=== PATIENT | female | born 1955 | race Caucasian/White ===

== ENCOUNTER → 2018-12-03 | Outpatient (CLI) | payer SELFPAY ==
--- NOTE | 2018-12-03 11:15 | US ---
EXAMINATION TYPE: US venous doppler duplex LE LT DATE OF EXAM: 12/03/2018 11:07 AM COMPARISON: NONE CLINICAL HISTORY: R22.42 swelling in L leg. Swelling and pain x 1 week. Started aspirin x 1 week ago . SIDE PERFORMED: Left TECHNIQUE: The lower extremity deep venous system is examined utilizing real time linear array sonog sheila with graded compression, doppler sonography and color-flow sonography. VESSELS IMAGED: External Iliac Vein (EIV) Common Femoral Vein Deep Femoral Vein Greater Saphenous Vein * Femoral Vein Popliteal Vein Small Saphenous Vein * Proximal Calf Veins (* superficial vessels) Left Leg: Negative for DVT IMPRESSION: No evidence for DVT at this time.
== END | disposition home or self-care (01) ==
LOC: RADUSWWP 10:48
PROVIDERS: ATTEND Family Medicine
DX: R22.42 Localized swelling, mass and lump, left lower limb (principal)

== ENCOUNTER → 2019-11-25 | Outpatient (CLI) | payer MEDICARE ==
--- NOTE | 2019-11-25 15:33 | BD ---
EXAMINATION TYPE: Axial Bone Density DATE OF EXAM: 11/25/2019 COMPARISON: NONE CLINICAL HISTORY: Height: 66 Weight: 191.2 FRAX RISK QUESTIONS: Alcohol (3 or more units per day): no Family History (Parent hip fracture): no Glucocorticoids (More than 3mos): no (Ex: prednisone, prednisolone, methylprednisolone, dexamethasone, and hydrocortisone). History of Fracture in Adulthood: yes Secondary Osteoporosis: 1. Type 1 Diabetes: no 2. Hyperthyroidism: no 3. Menopause before 45: yes 4. Malnutrition: no 5. Chronic liver disease: no Rheumatoid Arthritis: no Current Tobacco Use: no RISK FACTORS HISTORY OF: History of Wrist Fracture: right When: 9 years ago Family History of Osteoporosis: no Active: sometimes Diet low in dairy products/other sources of calcium: yes Postmenopausal woman: age 36 complete hysterectomy Lost more than 2 inches in height since high school: yes MEDICATIONS: vitamins, zoloft, Osteoporosis Medications: fosamax How Lon years Additional Medications: Additional History: EXAM MEASUREMENTS: Bone mineral densitometry was performed using the [employer] System. Bone mineral density as measured about the Lumbar spine is: ----- L1-L4(G/cm2): 1.042-1.3 T Score Values are as follows: ----- L2: -1.3 ----- L3: -0.1 ----- L4: -1.5 ----- L1-L4: -1.2 Bone mineral density : baseline Bone mineral density about the R hip (g/cm2): 0.684 Bone mineral density about the L hip (g/cm2): 0.742 T Score values are as follows: -----R Neck: -2.5 -----L Neck: -2.1 -----R Total: -2.1 -----L Total: -2.3 Bone mineral density : baseline IMPRESSION: Osteopenia NOTE: T-SCORE=SD OF THE YOUNG ADULT MEAN.
--- NOTE | 2019-12-03 14:21 | MM ---
Reason for exam: additional evaluation requested from prior study. Last mammogram was performed 2 years ago. History: Patient is postmenopausal, has history of breast cancer at age 49, history of other cancer, and is nulliparous. Implant in the left breast, 2004. Breast lift of the right breast, 2004. Reduction of the right breast, 2004. Mastectomy of the left breast, 2004. Took estrogen for 13 years. Physical Findings: Nurse did not find any significant physical abnormalities on exam. MG 3D Diag Mammo W/Cad RT CC and MLO view(s) were taken of the right breast. Prior study comparison: November 12, 2017, mammogram, performed at [place]. January 25, 2016, mammogram, performed at [place]. December 16, 2014, mammogram, performed at [place]. The breast tissue is heterogeneously dense. This may lower the sensitivity of mammography. These results were verbally communicated with the patient and result sheet given to the patient on 12/03/19. ASSESSMENT: Benign, BI-RAD 2 RECOMMENDATION: Follow-up diagnostic mammogram of the right breast in 1 year.
== END | disposition home or self-care (01) ==
LOC: RADMAMWWP 13:26
PROVIDERS: ATTEND Family Medicine
DX: Z08 Encounter for follow-up examination after completed treatment for malignant neoplasm (principal); M85.80 Other specified disorders of bone density and structure, unspecified site; Z85.3 Personal history of malignant neoplasm of breast; Z90.12 Acquired absence of left breast and nipple
CPT/HCPCS: 77080; 77065; G0279; 77061

== ENCOUNTER 2019-12-24 08:46 | Inpatient (IN) | payer MEDICARE ==
[2019-12-22 15:18] VITALS: BMI 29.9
[~2019-12-24 08:46] MED LIST: LACTATED RINGERS 1,000 ML IV SCH
[2019-12-24] MEDS ORDERED: LIDOCAINE 1% (10MG/ML) FOR IV START INTRADERMA ONE (09:12)
[2019-12-24] MEDS ORDERED: ONDANSETRON 4 MG/2 ML VIAL ONE ×2 (09:42→10:14)
[2019-12-24] MEDS ORDERED: ONDANSETRON 4 MG/2 ML VIAL IVP ONE (09:43)
[2019-12-24] MEDS ORDERED: PROPOFOL 10 MG/ML 20 ML VIAL IV ONE (10:14)
--- NOTE | 2019-12-24 11:04 | P.PCN ---
Date of Procedure: 12/24/19 Description of Procedure: BRIEF HISTORY: Patient is a 64-year-old female presenting for outpatient colonoscopy for follow-up after a positive Cologard. The patient reports last colonoscopy 13-14 years ago. She denies any change in bowel habits or blood per rectum. PROCEDURE PERFORMED: Colonoscopy. PREOPERATIVE DIAGNOSIS: Positive Cologard, last colonoscopy 13-14 years ago. ESTIMATED BLOOD LOSS: Minimal. IV sedation per Anesthesia. PROCEDURE: After informed consent was obtained, the patient, was brought into the endoscopy unit. IV sedation was administered by Anesthesia under continuous monitoring. Digital rectal examination was normal. Initially the Olympus CF-190 flexible video colonoscope was then inserted in the rectum, gradually advanced into the cecum without any difficulty. Careful examination was performed as the scope was gradually being withdrawn. Ileocecal valve and the appendiceal orifice were visualized and appeared normal. Prep was excellent. Mucosa of the cecum, ascending colon, transverse colon, descending colon, sigmoid colon, and rectum appeared normal, but was somewhat redundant. Retroflexion was performed in the rectum and no lesions were seen, low-grade internal hemorrhoids. The patient tolerated the procedure well. IMPRESSION: Normal-appearing colon from rectum to cecum. Internal hemorrhoids. RECOMMENDATIONS: Findings of this examination were discussed with the patient in her . Okay to resume diet. Okay to resume medication. Follow up with primary care provider as scheduled. Can repeat Cologard in 3 years or colonoscopy in 10 for screening.
[2019-12-24] MEDS ORDERED: IV FLUID CONTINUATION 100 ML IV ONE (11:11)
--- NOTE | 2019-12-24 11:55 | XR ---
EXAMINATION TYPE: XR chest 1V DATE OF EXAM: 12/24/2019 COMPARISON: NONE HISTORY: Cough possible aspiration TECHNIQUE: Single frontal view of the chest is obtained. FINDINGS: Surgical clips are seen in the left there subsegmental consolidation involving the left isael ng. There is no evidence of pneumothorax or pleural effusion. No overt failure. Hyperinflation sugges ts COPD. Arthropathy of the shoulders. The heart is enlarged. IMPRESSION: 1. Cardiomegaly with atelectasis favored over infiltrate involving the left upper and lower lobe.
[2019-12-24] MEDS ORDERED: ALBUTEROL NEBULIZED 2.5 MG/3 ML INHALATION STA (12:49)
[2019-12-24] MEDS ORDERED: ACETAMINOPHEN TAB 500 MG TAB ONE (13:23)
[2019-12-24] MEDS ORDERED: LACTATED RINGERS 1,000 ML IV ONE (13:25)
[2019-12-24] MEDS ORDERED: IPRATROPIUM-ALBUTEROL 3 ML NEB INHALATION PRN (14:44)
[2019-12-24] MEDS: LEVOFLOXACIN 500 MG TAB PO SCH (15:24)
--- NOTE | 2019-12-24 15:26 | CONS ---
CONSULTATION PULMONARY/CRITICAL CARE CONSULTATION: It was requested by Dr. Monet. REASON FOR CONSULTATION: Possible aspiration. DATE OF SERVICE: 12/24/2019 This is a 64-year-old female who underwent a colonoscopy by Dr. Santillan. The patient apparently had a normal-appearing colon from rectum to cecum and had some internal hemorrhoids. Apparently, there was no issues during the procedure, but there was some concern that maybe she aspirated toward the end of the procedure. Anyway, I was over in the endoscopy area and Dr. Monet asked me to see the patient. The patient's saturations on room air were mid 80s. She felt tight in her chest and was wheezing a bit. She was also coughing. A chest x-ray suggested some infiltrate in the left lower lobe. I thought she should probably be admitted overnight. The patient will be admitted to Dr. Saavedra's service. I believe her primary care physician is Dr. Locke. I did call Dr. Saavedra's nurse practitioner. Chest x-ray was read by the radiologist suggesting cardiomegaly with some atelectasis favored over infiltrate involving the left upper and lower lobe. I was sort of impressed with what I saw on the left lower lobe. CURRENT ALLERGIES: PENICILLIN. HOME MEDICATIONS: Include Zoloft, loratadine, Lasix, Fosamax, Tylenol, turmeric, safflower supplement, multivitamins, magnesium, collagen, calcium with vitamin D, aspirin, ascorbic acid. MEDICAL HISTORY: Includes osteoporosis, depression, and allergies. SURGICAL HISTORY: Remote. It does include a colonoscopy today. SOCIAL HISTORY: Positive for previous tobacco use. She quit many years back. Denies any significant alcohol or illicit drug use. FAMILY HISTORY: Noncontributory. REVIEW OF SYSTEMS: CONSTITUTIONAL: Negative. NEUROLOGIC: Negative. HEENT: Negative. CARDIOVASCULAR: Negative. PULMONARY: Shortness of breath, cough, chest tightness, chest congestion, wheezing. GI: Negative. : Negative. RHEUMATOLOGIC: Negative. IMMUNOLOGIC: Negative. ENDOCRINOLOGIC: Negative. DERMATOLOGIC: Negative. Current vital signs are reviewed. Temperature is 99.2, heart rate 117, respiratory rate 17, blood pressure 146/81 mean 102, 2 L saturation 97%. She appears in no acute distress. The saturations are only in the mid 80s on room air. HEENT: Examination is grossly unremarkable. NECK: Supple. Full range of motion. No adenopathy. Neck veins are flat. CARDIOVASCULAR: Examination reveals regular rhythm and rate. She is tachycardic. Heart rate 117. S1, S2 normal. LUNGS: Reveal diffuse coarse rhonchi. No wheezes. No crackles. There are some expiratory wheezes. Adventitious lung sounds are predominantly in the left lung, but also noted on the right as well. ABDOMEN: Soft, bowel sounds are heard. EXTREMITIES: Intact. No cyanosis, clubbing, or edema. SKIN: Without rash. NEUROLOGIC: Examination is nonfocal. LABS: Reviewed. No labs of note. X-rays reviewed. DAILY MEDICATIONS: That she is on right now is LR at 20 mL an hour. Lab data is not noted. ASSESSMENT: 1. Status post colonoscopy, postoperative day #0, with suspected aspiration. 2. Possible aspiration pneumonia left lower lobe. 3. History of allergies. 4. Osteoporosis. 5. Previous history of tobacco use, remotely. PLAN: The patient will be placed on DuoNeb q.i.d. and p.r.n. We will add some corticosteroids. We will also add some oral antibiotics. Additional recommendations and suggestions are forthcoming. I did recommend overnight observation. MMODL / IJN: [id number] /
[2019-12-24] MEDS: IPRATROPIUM-ALBUTEROL 3 ML NEB INHALATION SCH ×2 (15:52→19:41)
[2019-12-24] MEDS: methylPREDNISolone SOD SUCCI 40 MG/ML 1 ML VIAL IV SCH (16:55)
[2019-12-24] MEDS: ACETAMINOPHEN TAB 500 MG TAB PO PRN ×2 (16:56→20:15)
[2019-12-24] MEDS ORDERED: ZOLPIDEM 10 MG TAB PO PRN (19:20)
[2019-12-24] MEDS ORDERED: PANTOPRAZOLE 40 MG TABLET PO STA (19:21)
[2019-12-24 21:02] LABS: Glucose,Whole Blood 167 mg/dL (75-99)
[2019-12-24] MEDS: ONDANSETRON 4 MG/2 ML VIAL IVP PRN (22:23)
[2019-12-24] MEDS ORDERED: ZOLPIDEM 5 MG TAB PO PRN (22:31)
--- NOTE | 2019-12-24 23:20 | P.HPIM ---
History of Present Illness H&P Date: 12/24/19 Chief Complaint: Aspiration pneumonia, nausea vomiting, shortness of breath 64-year-old female one of Dr. Locke's patient with past medical history of mild ALLERGY and depression who was osteoporosis who apparently had positive Test; colonoscopy was scheduled for today which was done today with Dr. Santillan while in recovery room patient had developed nausea vomiting and aspirated, developed aspiration pneumonia along with intractable cough and significant shortness of b reath was seen Dr. Beckman and admitted to the hospital for aspiration pneumonia and hypoxia patient was giving IV antibiotic DuoNeb and oxygen. Review of Systems CONSTITUTIONAL: Well-developed no acute respiratory distress. EYES: No icterus sclerae, no conjunctivitis. EARS, NOSE, MOUTH, THROAT, and FACE: No sore throat, lymphadenopathy, carotid bruits or deformity. RESPIRATORY: Positive shortness of breath cough wheezes. CARDIOVASCULAR: Positive PND or to be palpitation, no Orthopnea, or angina. GASTROINTESTINAL: No Abd pain, Nausea or vomiting, no Diarrhea or constipation, No GI Bleed, no distention or masses. GENITOURINARY: Negative for Hematuria or UTI, no kidney stones. INTEGUMENT/BREAST: Negative for any muscular injury with mild osteoarthritis.. HEMATOLOGIC/LYMPHATIC: Negative for bleed or purpura. MUSCULOSKELTAL: Negative for Myalgia or arthralgia. NEURLOGICAL: No LOC, Sz or syncope, blurred vision dizziness or abnormality.. BEHAVIORAL/PSYCH: Negative. ENDOCRINE: Negative. Past Medical History Past Medical History: Cancer, Hypertension Additional Past Medical History / Comment(s): Hx left breast cancer with surgery, squamous skin cancer with radiation & surgery, frequent diarrhea., hx colon polyps. History of Any Multi-Drug Resistant Organisms: None Reported Past Surgical History: Breast Surgery, Hysterectomy Additional Past Surgical History / Comment(s): left mastectomy with implant, eye surgery (child), squamous skin cancer right caballero with radiation and then a muscle flap was needed. Past Anesthesia/Blood Transfusion Reactions: Motion Sickness, Postoperative Nausea & Vomiting (PONV) Smoking Status: Former smoker - Past Family History Mother Family Medical History: Diabetes Mellitus Father Family Medical History: Cancer Additional Family Medical History / Comment(s): prostate cancer Brother(s) Family Medical History: Myocardial Infarction ([place]) Sister(s) Family Medical History: Cancer Additional Family Medical History / Comment(s): leukemia Medications and Allergies Home Medications Medication Instructions Recorded Confirmed Type Acetaminophen [Tylenol Extra 500 mg PO DIRECTED PRN 12/22/19 12/24/19 History Strength] Alendronate Sodium [Fosamax] 70 mg PO WEEKLY 12/22/19 12/24/19 History Antidiarrheal 1 tab PO BID PRN 12/22/19 12/24/19 History Ascorbic Acid [Vitamin C] 1,200 mg PO DAILY 12/22/19 12/24/19 History Aspirin [Adult Low Dose Aspirin EC] 81 mg PO DAILY 12/22/19 12/24/19 History Calcium 1200 With D 1 tab PO DAILY 12/22/19 12/24/19 History Collagen 1 tab PO DAILY 12/22/19 12/24/19 History Furosemide [Lasix] 40 mg PO DAILY 12/22/19 12/24/19 History Glucos Sul 2Kcl/MSM/Chond/C/Mn 1 each PO DAILY 12/22/19 12/24/19 History [Glucosamine Chondroitin Cap] Loratadine [Claritin] 10 mg PO DAILY 12/22/19 12/24/19 History Magnesium 400 mg PO DAILY 12/22/19 12/24/19 History Multivit with Calcium,Iron,Min 1 each PO DAILY 12/22/19 12/24/19 History [Women's Multivitamin] Safflower Supplement 1 tab PO DAILY 12/22/19 12/24/19 History Sertraline [Zoloft] 100 mg PO DAILY 12/22/19 12/24/19 History Turmeric (Unknown Dose) 1 tab PO DAILY 12/22/19 12/24/19 History Allergies Allergy/AdvReac Type Severity Reaction Status Date / Time Penicillins Allergy Unknown Unknown Verified 12/22/19 14:33 Childhood Physical Exam Vitals: Vital Signs Temp Pulse Pulse Resp BP Pulse Ox 12/24/19 16:00 101 H 12/24/19 15:54 99 12/24/19 14:30 99.2 F 117 H 17 146/81 97 12/24/19 13:45 107 H 16 139/82 95 12/24/19 13:15 111 H 18 149/83 93 L 12/24/19 13:14 113 H 12/24/19 13:06 112 H 12/24/19 12:43 101 H 18 94 L 12/24/19 12:42 101 H 18 136/80 88 L 12/24/19 11:26 99 16 143/78 96 12/24/19 11:13 100 16 133/73 89 L 12/24/19 08:59 98.7 F 84 16 148/76 95 Intake and Output 12/24/19 12/24/19 12/24/19 06:59 14:59 22:59 Intake Total 1100 Balance 1100 Intake: IV 1100 Other: Weight 87 kg 87 kg General Appearance: Alert, cooperative, no distress, appears stated age. Neck HEENT: Supple, no lymphadenopathy, no thyroid enlargement, no carotid bruits. Lungs: Decreased breath sounds in the bases worsening in the left than the right side with mild crackles mild expressive wheezes. Chest Wall: Decrease expansion with deep inspiration no tenderness and no deformity was found on exam, no costochondral pain or discomfort. Heart: Regular rate and rhythm, S1, S2 normal, no murmur, rub or gallop. Back: Symmetric, no curvature, ROM normal, no CVA tenderness. Abdomen: Soft, non-tender, bowel sounds active all four quadrants, no masses, no organomegaly. Extremities: Extremities normal, atraumatic, no cyanosis or edema. Pulses: 2+ and symmetric. Skin: Skin color, texture, tugor normal, no rashes or lesions. Neurologic: Alert oriented x3 cranial nerves II through XII intact, no motor deficit, no abnormal balance or gait. Thrombosis Risk Factor Assmnt - DVT/VTE Prophylaxis DVT/VTE Prophylaxis: Mechanical Prophylaxis ordered - Choose All That Apply Any of the Below Risk Factors Present?: Yes Each Factor Represents 1 point: Obesity (BMI >25) Each Risk Factor Represents 2 Points: Age 61-74 years Other congenital or acquired thrombophilia - If yes, enter type in comment: No Thrombosis Risk Factor Assessment Total Risk Factor Score: 3 Thrombosis Risk Factor Assessment Level: Moderate Risk Assessment and Plan Assessment: 1 severe dyspnea and shortness of breath: Following nausea vomiting after her procedure and recovery patient had developed aspiration pneumonia which should be treated right away continue oxygen continue updraft treatment. 2 aspiration pneumonia: Patient was started on Levaquin 500 mg daily continue medication continue Lasix and sodium Medrol. 3 severe reactive airway/asthma: With worsening symptom after's patient will continue patient on DuoNeb and O2 along with methylprednisolone. 4 severe depression: Continue Zoloft 100 mg daily. 5 chronic edema: Continue patient on furosemide 40 mg daily. 6 GI prophylaxis: Patient was started on pantoprazole 40 mg daily. 7 DVT prophylaxis: Patient will be knee-high DAVID hose and Venodyne boots. CODE STATUS: Full code. Admit patient to the inpatient service for more than 2 night stay
[2019-12-25] MEDS: methylPREDNISolone SOD SUCCI 40 MG/ML 1 ML VIAL IV SCH ×5 (00:23→17:45)
[2019-12-25] MEDS: ACETAMINOPHEN TAB 500 MG TAB PO PRN ×2 (06:04→08:58)
[2019-12-25 06:31] LABS: Appearance,Urine Clear (Clear); Bilirubin,Urine Negative (Negative); Blood,Urine Negative (Negative); Color,Urine Yellow; Glucose,Urine (UA) Negative (Negative); Ketones,Urine Trace (Negative); Leukocyte Esterase,Urine Negative (Negative); Nitrite,Urine Negative (Negative); Protein,Urine Negative (Negative); Specific Gravity,Urine 1.011 (1.001-1.035); Urobilinogen,Urine <2.0 mg/dL (<2.0)
[2019-12-25] MEDS: ONDANSETRON 4 MG/2 ML VIAL IVP PRN ×2 (08:56→15:41)
[2019-12-25] MEDS: BUTALB/APAP/CAFF 50-325-40MG TAB PO PRN ×3 (09:00→17:44)
[2019-12-25] MEDS: IPRATROPIUM-ALBUTEROL 3 ML NEB INHALATION SCH ×4 (09:00→19:09)
[2019-12-25] MEDS ORDERED: FUROSEMIDE 40 MG TAB PO SCH (09:00)
[2019-12-25 10:43] LABS: Basophils % (A) 0 %; Eosinophils # (A) 0.1 k/uL (0-0.7); Eosinophils % (A) 0 %; HCT 40.1 % (34.0-46.0); HGB 12.9 gm/dL (11.4-16.0); Lymphocytes # (A) 0.6 k/uL (1.0-4.8); Lymphocytes % (A) 4 %; MCH 31.3 pg (25.0-35.0); MCHC 32.3 g/dL (31.0-37.0); Mean Platelet Volume 6.5; Monocytes # (A) 0.3 k/uL (0-1.0); Monocytes % (A) 2 %; Neutrophils # (A) 14.3 k/uL (1.3-7.7); Neutrophils % (A) 94 %; Platelet Count 266 k/uL (150-450); RBC 4.14 m/uL (3.80-5.40); RDW 12.8 % (11.5-15.5); WBC 15.3 k/uL (3.8-10.6)
[2019-12-25] MEDS: SODIUM CHLORIDE 0.9% 1,000 ML IV SCH ×2 (11:12→23:15)
[2019-12-25] MEDS: ASPIRIN 81 MG PO SCH (11:14)
[2019-12-25] MEDS: SERTRALINE 100 MG TAB PO SCH (11:19)
[2019-12-25] MEDS: LORATADINE 10 MG TAB PO SCH (11:19)
[2019-12-25] MEDS: MAGNESIUM OXIDE 400 MG TAB PO SCH (11:19)
--- NOTE | 2019-12-25 12:42 | P.PN ---
Subjective Progress Note Date: 12/25/19 Principal diagnosis: Acute aspiration, acute hypoxic respirator failure This 64-year-old female who came in for elective colonoscopy by Dr. Santillan on . Patient had a normal-appearing colon from rectum to cecum had some internal hemorrhoids. Procedure itself was uneventful however there was a concern that she may have aspirated towards the end of the procedure. She was taking wheezy, and her pulse ox was in the mid 80s. Chest x-ray showed some infiltrate in the left lower lobe. Patient was kept overnight. She was treated with the breathing treatments, IV steroids and empiric antibiotics, she's had no acute issues overnight. Afebrile. Breathing easier today, room air pulse ox is 94-95%, hemodynamically stable, respirations are nonlabored. Objective - Vital Signs Vital signs: Vital Signs Temp 97.8 F 12/25/19 07:47 Pulse 86 12/25/19 07:47 Resp 20 12/25/19 09:00 BP 139/78 12/25/19 07:47 Pulse Ox 94 L 12/25/19 07:47 Intake & Output 12/24/19 12/25/19 12/25/19 18:59 06:59 18:59 Intake Total 1100 240 Output Total 1 400 Balance 1100 239 -400 Weight 87 kg Intake: IV 1100 Oral 240 Output: Emesis 1 400 Other: Voiding Method Toilet Toilet # Voids 1 1 - Exam GENERAL EXAM: Alert, very pleasant, 64-year-old white female, on room air, with a pulse ox of 95% comfortable in no apparent distress. HEAD: Normocephalic/atraumatic. EYES: Normal reaction of pupils, equal size. Conjunctiva pink, sclera white. NOSE: Clear with pink turbinates. THROAT: No erythema or exudates. NECK: No masses, no JVD, no thyroid enlargement, no adenopathy. CHEST: No chest wall deformity. Symmetrical expansion. LUNGS: Equal air entry with no crackles, wheeze, rhonchi or dullness. CVS: Regular rate and rhythm, normal S1 and S2, no gallops, no murmurs, no rubs ABDOMEN: Soft, nontender. No hepatosplenomegaly, normal bowel sounds, no guarding or rigidity. EXTREMITIES: No clubbing, no edema, no cyanosis, 2+ pulses and upper and lower extremities. MUSCULOSKELETAL: Muscle strength and tone normal. SPINE: No scoliosis or deformity SKIN: No rashes CENTRAL NERVOUS SYSTEM: Alert and oriented -3. No focal deficits, tone is normal in all 4 extremities. PSYCHIATRIC: Alert and oriented -3. Appropriate affect. Intact judgment and insight. - Labs CBC & Chem 7: 12/25/19 10:04 Labs: Abnormal Lab Results - Last 24 Hours (Table) 12/24/19 12/25/19 12/25/19 Range/Units 20:58 06:13 10:04 WBC 15.3 H (3.8-10.6) k/uL Neutrophils # 14.3 H (1.3-7.7) k/uL Lymphocytes # 0.6 L (1.0-4.8) k/uL POC Glucose (mg/dL) 167 H (75-99) mg/dL Urine Ketones Trace H (Negative) Assessment and Plan Plan: Assessment: #1. Acute hypoxic respiratory failure related to possible aspiration pneumonia following colonoscopy, in the left lower lobe, recovered, patient is currently on room air #2. History of ALLERGIES #3. History of tobacco use, in remission, quit smoking 15 years ago, carries 35 years of smoking history of 1-1/2 packs per day #4. Osteoporosis #5. Hypertension #6. History of left breast cancer status post left mastectomy with implant #7. History of squamous cell skin cancer with radiation and a muscle flap #8. Frequent diarrhea and history of colon polyps #9. History of heavy alcohol use, in the past Plan: Patient is doing better, follow-up chest x-ray has been reviewed, showing improving left lower lobe infiltrate, patient has been clinically stable, afebrile, breathing easier today, she is on room air. She's cleared for discharge home from pulmonary perspective. Outpatient follow-up with Dr. Medina in one week I performed a history & physical examination of the patient and discussed their management with my nurse practitioner, Nataliya Sears. I reviewed the nurse practitioner's note and agree with the documented findings and plan of care. Lung sounds are positive for diminished breath sounds. The findings and the impression was discussed with the patient. I attest to the documentation by the nurse practitioner. Time with Patient: Less than 30
--- NOTE | 2019-12-25 13:33 | P.PN ---
Subjective Progress Note Date: 12/25/19 HISTORY OF PRESENT ILLNESS 64-year-old female one of Dr. Locke's patient with past medical history of mild ALLERGY and depression who was osteoporosis who apparently had positive Test; colonoscopy was scheduled for today which was done today with Dr. Santillan while in recovery room patient had developed nausea vomiting and aspirated, developed aspiration pneumonia along with intractable cough and significant shortness of breath was seen Dr. Beckman and admitted to the hospital for aspiration pneumonia and hypoxia patient was giving IV antibiotic DuoNeb and oxygen. 12/24: Patient continues to have difficulty with breathing and is also complaining of headache and nausea. She states the Tylenol is not helping the headache. She has Zofran available as needed for nausea. P rest that will be added. She also feels that the nebulizer is making her nauseated. She has been afebrile, heart rate 86, blood pressure 139/78, pulse ox 94% on room air. CBC reveals WBC 15.3, hemoglobin 12.9 and platelet count 266. Pulmonary medicine has been the patient for discharge. We will plan to monitor her overnight and possible discharge tomorrow. REVIEW OF SYSTEMS CONSTITUTIONAL: Well-developed no acute respiratory distress. Denies fever. EYES: No icterus sclerae, no conjunctivitis. EARS, NOSE, MOUTH, THROAT, and FACE: No sore throat, lymphadenopathy, carotid bruits or deformity. RESPIRATORY: Positive shortness of breath cough wheezes. CARDIOVASCULAR: Positive PND or to be palpitation, no Orthopnea, or angina. GASTROINTESTINAL: No Abd pain, Nausea or vomiting, no Diarrhea or constipation, No GI Bleed, no distention or masses. GENITOURINARY: Negative for Hematuria or UTI, no kidney stones. INTEGUMENT/BREAST: Negative for any muscular injury with mild osteoarthritis.. HEMATOLOGIC/LYMPHATIC: Negative for bleed or purpura. MUSCULOSKELTAL: Negative for Myalgia or arthralgia. NEURLOGICAL: No LOC, Sz or syncope, blurred vision dizziness or abnormality.. BEHAVIORAL/PSYCH: Negative. ENDOCRINE: Negative. PHYSICAL EXAMINATION General Appearance: Alert, cooperative, no distress, appears stated age. Neck HEENT: Supple, no lymphadenopathy, no thyroid enlargement, no carotid bruits. Lungs: Decreased breath sounds in the bases worsening in the left than the right side with mild crackles mild expressive wheezes. Chest Wall: Decrease expansion with deep inspiration no tenderness and no deformity was found on exam, no costochondral pain or discomfort. Heart: Regular rate and rhythm, S1, S2 normal, no murmur, rub or gallop. Back: Symmetric, no curvature, ROM normal, no CVA tenderness. Abdomen: Soft, non-tender, bowel sounds active all four quadrants, no masses, no organomegaly. Extremities: Extremities normal, atraumatic, no cyanosis or edema. Pulses: 2+ and symmetric. Skin: Skin color, texture, tugor normal, no rashes or lesions. Neurologic: Alert oriented x3 cranial nerves II through XII intact, no motor d eficit, no abnormal balance or gait. ASSESSMENT AND PLAN 1 acute hypoxic respiratory failure following nausea vomiting after her procedure and recovery with aspiration pneumonia. Consult with pulmonary medicine appreciated. Patient is currently off oxygen therapy. Continue current treatment with nebulizers, IV antibiotics and IV Solu-Medrol 2 aspiration pneumonia: Patient was started on Levaquin 500 mg daily continue medication continue Lasix and sodium Medrol. 3 severe reactive airway/asthma: With worsening symptom after's patient will continue patient on DuoNeb and O2 along with methylprednisolone. 4 severe depression: Continue Zoloft 100 mg daily. 5 chronic edema: Continue patient on furosemide 40 mg daily. 6 GI prophylaxis: Patient was started on pantoprazole 40 mg daily. 7 DVT prophylaxis: Patient will be knee-high DAVID hose and Venodyne boots. 8 headache and nausea. Fioricet added CODE STATUS: Full code. DISCHARGE PLAN home on the weekend Impression and plan of care have been directed as dictated by the signing elgin marie. Sparkle Reese nurse practitioner acting as scribe for signing physician. Objective - Vital Signs Vital signs: Vital Signs Temp 97.8 F 12/25/19 07:47 Pulse 86 12/25/19 07:47 Resp 20 12/25/19 07:47 BP 139/78 12/25/19 07:47 Pulse Ox 94 L 12/25/19 07:47 Intake & Output 12/24/19 12/25/19 12/25/19 18:59 06:59 18:59 Intake Total 1100 240 Output Total 1 Balance 1100 239 Weight 87 kg Intake: IV 1100 Oral 240 Output: Emesis 1 Other: Voiding Method Toilet # Voids 1 - Labs CBC & Chem 7: 12/25/19 10:04 Labs: Abnormal Lab Results - Last 24 Hours (Table) 12/24/19 12/25/19 Range/Units 20:58 06:13 POC Glucose (mg/dL) 167 H (75-99) mg/dL Urine Ketones Trace H (Negative)
--- NOTE | 2019-12-25 14:03 | XR ---
EXAMINATION TYPE: XR chest 2V DATE OF EXAM: 12/25/2019 CLINICAL HISTORY: follow up. Status post colonoscopy 12/24/2027 with aspiration. TECHNIQUE: Frontal and lateral view of the chest. COMPARISON: 12/23/2009 chest radiograph FINDINGS: The cardiomediastinal silhouette is within normal limits for size. Pulmonary vasculature i s normal. There is patchy airspace opacity of the left lower lobe. No pneumothorax. No pleural effusi on. Chilaiditi with colonic bowel gas is seen under the right hemidiaphragm. The osseous structures a re intact. Surgical clips of the left breast. IMPRESSION: Patchy airspace opacity of the left lower lobe likely represents aspiration pneumonia.
[2019-12-25 15:59] LABS: African American GFR (CKD) 110.9 (60.0-200.0); Albumin 4.2 g/dL (3.80-4.90); Albumin/Globulin Ratio 1.56 (1.60-3.17); Anion Gap 11.3 mmol/L (4.00-12.00); BUN/Creat Ratio 16.67 Ratio (12.00-20.00); Calcium 9.3 mg/dL (8.7-10.3); Carbon Dioxide 22.7 mmol/L (21.6-31.8); Globulin 2.7 g/dL (1.6-3.3); Non-African American GFR(CKD) 95.7 (60.0-200.0); Potassium 4.2 mmol/L (3.5-5.5); Total Bilirubin 0.6 mg/dL (0.2-1.2); Total Protein 6.9 g/dL (6.2-8.2)
[2019-12-25] MEDS: LEVOFLOXACIN 500 MG TAB PO SCH (16:06)
[2019-12-25] MEDS: KETOROLAC 15 MG/ML 1 ML VIAL IVP PRN (18:54)
[2019-12-25] MEDS: METOCLOPRAMIDE 5 MG/ML 2 ML VIAL IVP PRN (18:56)
[2019-12-26] MEDS: KETOROLAC 15 MG/ML 1 ML VIAL IVP PRN ×2 (01:12→06:33)
[2019-12-26] MEDS: methylPREDNISolone SOD SUCCI 40 MG/ML 1 ML VIAL IV SCH ×2 (01:12→05:12)
[2019-12-26] MEDS: METOCLOPRAMIDE 5 MG/ML 2 ML VIAL IVP PRN ×2 (01:12→06:34)
[2019-12-26] MEDS: ACETAMINOPHEN TAB 500 MG TAB PO PRN (01:24)
[2019-12-26 04:07] VITALS: RESP 16
[2019-12-26] MEDS: IPRATROPIUM-ALBUTEROL 3 ML NEB INHALATION SCH ×2 (07:36→11:07)
[2019-12-26] MEDS: LORATADINE 10 MG TAB PO SCH (08:18)
[2019-12-26] MEDS: ASPIRIN 81 MG PO SCH (08:18)
[2019-12-26] MEDS: MAGNESIUM OXIDE 400 MG TAB PO SCH (08:18)
[2019-12-26] MEDS: SERTRALINE 100 MG TAB PO SCH (08:18)
--- NOTE | 2019-12-26 09:32 | P.DS ---
Providers Expected date of discharge: 12/26/19 Attending physician: Jasiel Saavedra Primary care physician: Ronit Locke [facility] Course: 64-year-old female one of Dr. Locke's patient with past medical history of mild ALLERGY and depression who was osteoporosis who apparently had positive Test; colonoscopy was scheduled for today which was done today with Dr. Santillan while in recovery room patient had developed nausea vomiting and aspirated, developed aspiration pneumonia along with intractable cough and significant shortness of breath was seen Dr. Beckman and admitted to the hospital for aspiration pneumonia and hypoxia patient was giving IV antibiotic DuoNeb and oxygen. 12/24: Patient continues to have difficulty with breathing and is also complaining of headache and nausea. She states the Tylenol is not helping the headache. She has Zofran available as needed for nausea. P rest that will be added. She also feels that the nebulizer is making her nauseated. She has been afebrile, heart rate 86, blood pressure 139/78, pulse ox 94% on room air. CBC r eveals WBC 15.3, hemoglobin 12.9 and platelet count 266. Pulmonary medicine has been the patient for discharge. We will plan to monitor her overnight and possible discharge tomorrow. 12/25: continued to have headache and nausea but improved during the night with Toradol and Reglan. Patient denies having any shortness of breath, no cough right now. She ate her breakfast without vomiting. She continues to have headache that is improved and recommend Flonase, continue Claritin at home. Patient will also be given prescription for tramadol and Reglan. Patient is to follow-up with her primary care in the next few days to week. Discharge diagnoses: 1 acute hypoxic respiratory failure following nausea vomiting after her procedure and recovery with aspiration pneumonia. 2 aspiration pneumonia 3 severe reactive airway 4 severe depression 5 chronic edema 6 headache most likely secondary to seasonal ALLERGIES. 7 nausea. Discharge plan: Home Impression and plan of care have been directed as dictated by the signing physician. Sparkle Reese nurse practitioner acting as scribe for signing physician. Patient Condition at Discharge: Good Plan - Discharge Summary Discharge Rx Participant: No New Discharge Prescriptions: New Levofloxacin [Levaquin] 500 mg PO Q24H #5 tab Metoclopramide [Reglan] 5 mg PO TID PRN #15 tab PRN Reason: Nausea traMADol HCL [Ultram] 50 mg PO Q4HR PRN 3 Days #15 tab PRN Reason: Pain Fluticasone Nasal Norco [Flonase Nasal Norco] 1 spray EA NOSTRIL DAILY #1 bottle Continue Alendronate Sodium [Fosamax] 70 mg PO WEEKLY Sertraline [Zoloft] 100 mg PO DAILY Furosemide [Lasix] 40 mg PO DAILY Turmeric (Unknown Dose) 1 tab PO DAILY Safflower Supplement 1 tab PO DAILY Multivit with Calcium,Iron,Min [Women's Multivitamin] 1 each PO DAILY Magnesium 400 mg PO DAILY Glucos Sul 2Kcl/MSM/Chond/C/Mn [Glucosamine Chondroitin Cap] 1 each PO DAILY Collagen 1 tab PO DAILY Calcium 1200 With D 1 tab PO DAILY Aspirin [Adult Low Dose Aspirin EC] 81 mg PO DAILY Ascorbic Acid [Vitamin C] 1,200 mg PO DAILY Antidiarrheal 1 tab PO BID PRN PRN Reason: Diarrhea Acetaminophen [Tylenol Extra Strength] 500 mg PO DIRECTED PRN PRN Reason: Pain Loratadine [Claritin] 10 mg PO DAILY Discharge Medication List Acetaminophen [Tylenol Extra Strength] 500 mg PO DIRECTED PRN 12/22/19 [History] Alendronate Sodium [Fosamax] 70 mg PO WEEKLY 12/22/19 [History] Antidiarrheal 1 tab PO BID PRN 12/22/19 [History] Ascorbic Acid [Vitamin C] 1,200 mg PO DAILY 12/22/19 [History] Aspirin [Adult Low Dose Aspirin EC] 81 mg PO DAILY 12/22/19 [History] Calcium 1200 With D 1 tab PO DAILY 12/22/19 [History] Collagen 1 tab PO DAILY 12/22/19 [History] Furosemide [Lasix] 40 mg PO DAILY 12/22/19 [History] Glucos Sul 2Kcl/MSM/Chond/C/Mn [Glucosamine Chondroitin Cap] 1 each PO DAILY 12/22/19 [History] Loratadine [Claritin] 10 mg PO DAILY 12/22/19 [History] Magnesium 400 mg PO DAILY 12/22/19 [History] Multivit with Calcium,Iron,Min [Women's Multivitamin] 1 each PO DAILY 12/22/19 [History] Safflower Supplement 1 tab PO DAILY 12/22/19 [History] Sertraline [Zoloft] 100 mg PO DAILY 12/22/19 [History] Turmeric (Unknown Dose) 1 tab PO DAILY 12/22/19 [History] Fluticasone Nasal Norco [Flonase Nasal Norco] 1 spray EA NOSTRIL DAILY #1 bottle 12/26/19 [Rx] Levofloxacin [Levaquin] 500 mg PO Q24H #5 tab 12/26/19 [Rx] Metoclopramide [Reglan] 5 mg PO TID PRN #15 tab 12/26/19 [Rx] traMADol HCL [Ultram] 50 mg PO Q4HR PRN 3 Days #15 tab 12/26/19 [Rx] Follow up Appointment(s)/Referral(s): Ronit Locke MD [Primary Care Provider] - 1 Week Antonio Beckman DO [Doctor of Osteopathic Medicine] - 01/01/20 9:30 am Brandon Santillan MD [STAFF PHYSICIAN] - As Needed Patient Instructions/Handouts: *Surgery [facility] - (Anesthesia) Endoscopy Discharge Instructions, Aspiration Pneumonia (DC), Colonoscopy (DC) Activity/Diet/Wound Care/Special Instructions: Off work until seen by Dr. Locke. Discharge Disposition: HOME SELF-CARE
[2019-12-26 09:54] VITALS: BP 146/70; PULSE 92; TEMP 97.6
== END 2019-12-26 11:50 | disposition home or self-care (01) | DRG 177 ==
LOC: ORWHC2ENDO 08:46 → 6NMEDSUR 10:58 → 3NCARDOBS 22:12 → ORWHC2ENDO 12-25 08:45 → 3NCARDOBS 12-25 08:45 → ORWHC2ENDO 12-26 11:50 → 3NCARDOBS 12-26 11:50 → ORWHC2ENDO 12-26 20:06 → 3NCARDOBS 12-26 20:06
PROVIDERS: ADMIT Internal Medicine Geriatric Medicine; ATTEND Internal Medicine Geriatric Medicine
PROC: 0DJD8ZZ Inspection of Lower Intestinal Tract, Via Natural or Artificial Opening Endoscopic (ICD-10-PCS; principal; 2019-12-24 09:30)
DX: J69.0 Pneumonitis due to inhalation of food and vomit (principal); J96.01 Acute respiratory failure with hypoxia; Q43.8 Other specified congenital malformations of intestine; F32.9 Major depressive disorder, single episode, unspecified; I10 Essential (primary) hypertension; J45.909 Unspecified asthma, uncomplicated; K64.8 Other hemorrhoids; M81.0 Age-related osteoporosis without current pathological fracture; T17.918A Gastric contents in respiratory tract, part unspecified causing other injury, initial encounter; Z79.82 Long term (current) use of aspirin; Z79.83 Long term (current) use of bisphosphonates; Z79.899 Other long term (current) drug therapy; Z80.6 Family history of leukemia; Z82.49 Family history of ischemic heart disease and other diseases of the circulatory system; Z83.3 Family history of diabetes mellitus; Z80.42 Family history of malignant neoplasm of prostate; R51.9 Headache, unspecified; Z85.3 Personal history of malignant neoplasm of breast; Z85.828 Personal history of other malignant neoplasm of skin; Z86.010 Personal history of colon polyps; Z87.891 Personal history of nicotine dependence; Z90.12 Acquired absence of left breast and nipple; Z90.710 Acquired absence of both cervix and uterus; Z98.82 Breast implant status; R60.9 Edema, unspecified; Z92.3 Personal history of irradiation; E66.9 Obesity, unspecified; Z68.30 Body mass index [BMI] 30.0-30.9, adult; Z88.0 Allergy status to penicillin
CPT/HCPCS: 45378; 71045; 71046; 80053; 81003; 85025; 93005; 94640

== ENCOUNTER → 2020-04-28 | Outpatient (CLI) | payer OTHER ==
--- NOTE | 2020-04-28 16:18 | CT ---
EXAMINATION TYPE: CT lower extremity RT wo con DATE OF EXAM: 04/28/2020 COMPARISON: None. HISTORY: Pain RT knee, unspecified fracture of distal RT femur, Dr. Lemus requesting as much of the f emur as possible on order. CT DLP: 1094.30 mGycm Automated exposure control for dose reduction was used. FINDINGS: There is linear lucency beginning mid to distal diaphysis along the posterior medial aspect extending vertically seen best coronal image 24 extending to the intercondylar notch through coronal images 32 where there is slight disruption consistent with acute minimally displaced intra-articular fracture. There is moderate to large suprapatellar joint effusion with fat fluid level. Chondrocalcinosis of the medial lateral menisci are present. The outer aspect of the patella has well-defined defect suspect bipartite patella versus acute fractu re, correlate with point tenderness at this level axial image 123. Mild tricompartment joint space loss and spurring. Mild diffuse subcutaneous edema greatest along the lateral aspect. IMPRESSION: Acute minimally displaced vertically oriented intra-articular fracture through the distal diaphyseal cortex extending to the intercondylar notch with associated hemarthrosis.
== END | disposition home or self-care (01) ==
LOC: RADCTMAIN 15:31
PROVIDERS: ATTEND Orthopaedic Surgery
DX: S82.892A Other fracture of left lower leg, initial encounter for closed fracture (principal); M25.061 Hemarthrosis, right knee

== ENCOUNTER → 2020-07-19 | Outpatient (CLI) | payer MEDICARE ==
--- NOTE | 2020-07-19 12:00 | ECHOF ---
Referral Reason:R01.1 cardiac murmur MEASUREMENTS -------- HEIGHT: 170.2 cm WEIGHT: 80.3 kg BP: RVIDd: 1.8 cm (< 3.3) IVSd: 1.2 cm (0.6 - 1.1) LVIDd: 4.6 cm (3.9 - 5.3) LVPWd: 1.1 cm (0.6 - 1.1) IVSs: 1.8 cm LVIDs: 3.2 cm LVPWs: 1.6 cm Ao Diam: 2.6 cm (2.0 - 3.7) AV Cusp: 1.6 cm (1.5 - 2.6) LA Diam: 2.8 cm (2.7 - 3.8) MV EXCURSION: 27.072 mm (> 18.000) MV EF SLOPE: 105 mm/s (70 - 150) EPSS: 0.7 cm MV E Kranthi: 0.92 m/s MV DecT: 205 ms MV A Kranthi: 0.71 m/s MV E/A Ratio: 1.30 AR PHT: 1227 ms RAP: 5.00 mmHg RVSP: 22.12 mmHg FINDINGS -------- This was a technically difficult study with suboptimal views. Pt. Has Breast inplants. No apicals. Study taken from [place] The left ventricular size is normal. There is mild concentric left ventricular hypertrophy. Overa ll left ventricular systolic function is normal with, an EF between 55 - 60 %. The right ventricle is normal in size. The left atrial size is normal. The right atrial size is normal. Aortic valve is trileaflet and is mildly thickened. There is mild aortic regurgitation. The mitral valve is normal. The mitral valve leaflets are mildly thickened. Mild mitral regurgita tion is present. Echogenic structure seen on the LA wall attached to the posterior leaflet. D/w D r. Chucky The tricuspid valve appears structurally normal. Trace tricuspid regurgitation present. Right robby tricular systolic pressure is normal at < 35 mmHg. There is no pulmonic regurgitation present. The aortic root size is normal. Normal inferior vena cava with normal inspiratory collapse consistent with estimated right atrial pre ssure of 5 mmHg. There is no pericardial effusion. CONCLUSIONS -------- 1. Pt. Has Breast inplants. No apicals. Study taken from [place] 2. The left ventricular size is normal. 3. There is mild concentric left ventricular hypertrophy. 4. Overall left ventricular systolic function is normal with, an EF between 55 - 60 %. 5. Aortic valve is trileaflet and is mildly thickened. 6. There is mild aortic regurgitation. 7. The mitral valve leaflets are mildly thickened. 8. Mild mitral regurgitation is present. 9. Echogenic structure seen on the LA wall attached to the posterior leaflet. 10. Trace tricuspid regurgitation present. 11. There is no pericardial effusion. HEALTH THERAPIST: Malathi Caldwell RDCS
== END | disposition home or self-care (01) ==
LOC: RADECHMAIN 09:59
PROVIDERS: ATTEND Family Medicine
DX: I08.8 Other rheumatic multiple valve diseases (principal); I51.7 Cardiomegaly
CPT/HCPCS: 93306

== ENCOUNTER 2020-08-30 09:21 | Day surgery (SDC) | payer MEDICARE ==
[2020-08-29 10:28] VITALS: BMI 27.3
[2020-08-30 10:06] VITALS: TEMP 98.1
[2020-08-30] MEDS ORDERED: IV FLUID CONTINUATION 1,000 ML IV ONE (10:10)
[2020-08-30] MEDS ORDERED: SODIUM CHLORIDE 0.9% 500 ML 500 ML IV ONE (10:11)
[2020-08-30] MEDS ORDERED: fentaNYL (PF) 50 MCG/ML 2 ML AMP ONE (10:19)
[2020-08-30] MEDS: BENZOCAINE SPRAY 1 CAN MUCOUS MEM ONE ×2 (10:22→10:25)
[2020-08-30] MEDS ORDERED: fentaNYL (PF) 50 MCG/ML 2 ML AMP IVP ONE (10:26)
[2020-08-30] MEDS ORDERED: MIDAZOLAM 2 MG/2 ML VIAL IVP ONE ×2 (10:26→10:30)
[2020-08-30 11:31] VITALS: RESP 18
[2020-08-30 11:32] VITALS: BP 126/72; PULSE 82
--- NOTE | 2020-08-30 17:50 | P.TEE ---
Indications for Procedure(s): Echogenic structure near the left atrium Date of Procedure: 08/30/20 Preoperative Diagnosis: Echogenic structure near the left atrium. Probably shadow from left breast implantation Postoperative Diagnosis: Echogenic structure near Left atrium most probably shadow from the breast implant Description of Procedure(s): INDICATION: Assessment of the echogenic structure near the left atrium CONSENT: Informed verbal consent was obtained from the patient. PROCEDURE: he throat was sprayed with Hurricaine. Patient was given Versed for sedation. She received a total of 3 mg of Versed and 25 g of fentanyl for sedation. A lubricated Omni probe was introduced in the oropharynx. Multiple views of obtained from esophagus. Patient had significant reaching and difficulty. Probe was not advanced into the stomach. Color, pulsed and continuous wave Doppler studies were performed. Saline contrast injection was performed. Patient tolerated the procedure well. No immediate complications. Patient will be discharged home later FINDINGS: The aortic valve is tricuspid and seems to function normally. The mitral valve structure and function appears to be normal. There is pulmonic valve shows mild regurgitation. The interatrial septum did not show any significant shunt. Injection of the saline contrast bubble did not reveal any crossing of the bubbles. There is a ringlike structure seen within the left atrial area. This most probably is a shadow from the breast implant. The left atrium appeared to be enlarged. This masslike lesion does have some pulsatile motion. IMPRESSION: #1. A ringlike hostile structure seen near the left atrium. It is felt most probably a shadow from breast implant. #2. Normal valvar function. #3. No clot in left atrial appendage. #4. No shunting across the interatrial septum with global ejection #5. The left atrial enlargement. #6. Left ventricular function is normal PLAN: Patient is going to be discharged home. May send the ROXANNE images for second opinion
== END 2020-08-30 11:49 | disposition home or self-care (01) ==
LOC: CATHCVL 09:21
PROVIDERS: ATTEND Internal Medicine Cardiovascular Disease
DX: R93.1 Abnormal findings on diagnostic imaging of heart and coronary circulation (principal); Z82.49 Family history of ischemic heart disease and other diseases of the circulatory system; F17.210 Nicotine dependence, cigarettes, uncomplicated; Z85.3 Personal history of malignant neoplasm of breast; Z90.12 Acquired absence of left breast and nipple; I08.0 Rheumatic disorders of both mitral and aortic valves; Z79.899 Other long term (current) drug therapy; Z85.828 Personal history of other malignant neoplasm of skin; Z20.822 Contact with and (suspected) exposure to COVID-19
CPT/HCPCS: 93312; 93320; 93325; 87635; J2250; J3010

== ENCOUNTER → 2020-12-20 | Outpatient (CLI) | payer MEDICARE ==
--- NOTE | 2020-12-20 09:03 | MM ---
Reason for exam: additional evaluation requested from prior study. Last mammogram was performed 1 year and 1 month ago. History: Patient is postmenopausal, has history of breast cancer at age 49, history of other cancer, and is nulliparous. Implant in the left breast, 2005. Breast lift of the right breast, 2004. Reduction of the right breast, 2004. Mastectomy of the left breast, 2004. Took hormonal contraceptives for 2 years. Took estrogen for 13 years. Physical Findings: Nurse did not find any significant physical abnormalities on exam. MG 3D Diag Mammo W/Cad RT CC, MLO, and LM view(s) were taken of the right breast. Prior study comparison: November 25, 2019, right breast MG 3d diag mammo w/cad RT. November 12, 2017, mammogram, performed at [place]. January 25, 2016, mammogram, performed at [place]. The breast tissue is heterogeneously dense. This may lower the sensitivity of mammography. Areas of asymmetric density disperse on additional views. No significant new findings when compared with previous films. These results were verbally communicated with the patient and result sheet given to the patient on 12/20/20. ASSESSMENT: Benign, BI-RAD 2 RECOMMENDATION: Routine screening mammogram of the right breast in 1 year. Patient should continue monthly self breast exams. A negative report should not preclude additional follow up of suspicious palpable abnormalities.
--- NOTE | 2020-12-20 17:15 | BD ---
EXAMINATION TYPE: Axial Bone Density DATE OF EXAM: 12/20/2020 COMPARISON: 11/25/2019 CLINICAL HISTORY: Postmenopausal screening Height: 5 FT 6 1/2 IN Weight: 172 FRAX RISK QUESTIONS: Alcohol (3 or more units per day): NO Family History (Parent hip fracture): NO Glucocorticoids (More than 3mos): NO (Ex: prednisone, prednisolone, methylprednisolone, dexamethasone, and hydrocortisone). History of Fracture in Adulthood: YES Secondary Osteoporosis: 1. Type 1 Diabetes: NO 2. Hyperthyroidism: NO 3. Menopause before 45: YES 4. Malnutrition: NO 5. Chronic liver disease: NO Rheumatoid Arthritis: NO Current Tobacco Use: FORMER RISK FACTORS HISTORY OF: Hip Fracture (Right/Left): RT FEMUR When: 2020 Surgery to Spine/Hip(right/left)/Wrist (right/left): NO Family History of Osteoporosis: UNSURE Active: YES Diet low in dairy products/other sources of calcium: Postmenopausal woman: TOTAL HYST AGE 36 Take estrogen and/or progesterone medications: TOOK PREMARIN AGE 36- 49 Lost more than 2 inches in height since high school: YES MEDICATIONS: Osteoporosis Medications: YES Which medication: WAS ON FOSAMAX UNTIL APR 2020 NOW TAKING CALCITONIN How Long: APPROX 10 YEARS Additional Medications: LASIX, ZOLOFT, Additional History: TOOK FOSAMAX FOR YEARS STOPPED APR 2020. BREAST CANCER AGE 49 EXAM MEASUREMENTS: Bone mineral densitometry was performed using the Best Five Reviewed System. Bone mineral density as measured about the Lumbar spine is: ----- L1-L4(G/cm2): 1.096 T Score Values are as follows: ----- L2: -0.7 ----- L3: 0.3 ----- L4: -1.1 ----- L1-L4: -0.7 Bone mineral density has: INCREASED 5.0 % since study of: 2019 Bone mineral density about the R hip (g/cm2): 0.686 Bone mineral density about the L hip (g/cm2): 0.726 T Score values are as follows: -----R Neck: -2.5 -----L Neck: -2.2 -----R Total: -2.2 -----L Total: -2.2 Bone mineral density has: INCREASED 0.8% since study of: 2019 IMPRESSION: Osteoporosis (T Score less than -2.5). There is increased fracture risk and therapy is usually indicated based on age. Re-Screen 1-2 years. NOTE: T-SCORE=SD OF THE YOUNG ADULT MEAN.
== END | disposition home or self-care (01) ==
LOC: RADMAMWWP 07:35
PROVIDERS: ATTEND Family Medicine
DX: Z13.820 Encounter for screening for osteoporosis (principal); M81.0 Age-related osteoporosis without current pathological fracture; Z78.0 Asymptomatic menopausal state; N64.89 Other specified disorders of breast
CPT/HCPCS: 77080; 77065; G0279; 77061

== ENCOUNTER → 2021-01-20 | Outpatient (CLI) | payer MEDICARE ==
--- NOTE | 2021-01-20 10:58 | US ---
EXAMINATION TYPE: US venous doppler duplex LE LT DATE OF EXAM: 01/20/2021 10:05 AM COMPARISON: NONE CLINICAL HISTORY: 65-year-old female M79.662 PAIN IN LT LOWER LEG. SIDE PERFORMED: Left TECHNIQUE: The lower extremity deep venous system is examined utilizing real time linear array sonog sheila with graded compression, doppler sonography and color-flow sonography. FINDINGS: VESSELS IMAGED: Common Femoral Vein Deep Femoral Vein Greater Saphenous Vein * Femoral Vein Popliteal Vein Small Saphenous Vein * Proximal Calf Veins (* superficial vessels) Left Leg: Negative for DVT Incidental prominent left inguinal lymph node measuring 2.3 x 1.0 x 0.9 cm. IMPRESSION: No evidence for DVT within the left lower extremity imaged from the groin to the upper calf. Prominen t but not enlarged 1.0 cm short axis left inguinal lymph node probably reactive.
== END | disposition home or self-care (01) ==
LOC: RADUSWWP 10:01
PROVIDERS: ATTEND Internal Medicine Geriatric Medicine
DX: M79.662 Pain in left lower leg (principal)

== ENCOUNTER → 2021-12-21 | Outpatient (CLI) | payer MEDICARE ==
--- NOTE | 2021-12-22 10:16 | MM ---
Reason for Exam: Screening (asymptomatic). Last screening mammogram was performed 12 month(s) ago. Patient History: Menarche at age 13. Patient has no children. Left ovary removed at age 36. Right ovary removed at age 36. Hysterectomy at age 36. Postmenopausal. Breast cancer, age 49. Other cancer. Patient used Estrogen for 13 years. Patient used Hormonal Contraceptives for 2 years. 2004, Reduction on the Right side. 2004, Mastectomy on the Left side. 2004, Implant on the left side. Prior Study Comparison: 11/12/2017 Screening Mammogram, [place]. 11/25/2019 Right Diagnostic Mammogram, [facility]. 12/20/2020 Right Diagnostic Mammogram, [facility]. Tissue Density: Right: The breast tissue is heterogeneously dense. This may lower the sensitivity of mammography. Findings: There is no suspicious group of microcalcifications or new suspicious mass in either breast.Right breast biopsy clip is present. There is no suspicious group of microcalcifications or new suspicious mass in either breast. Overall Assessment: Negative, BI-RAD 1 Management: Screening Mammogram of the right breast in 1 year. A clinical breast exam by your physician is recommended on an annual basis and results should be correlated with mammographic findings. Electronically signed and approved by: Antonio Mo DO
== END | disposition home or self-care (01) ==
LOC: RADMAMWWP 08:08
PROVIDERS: ATTEND Family Medicine
DX: Z12.31 Encounter for screening mammogram for malignant neoplasm of breast (principal); Z78.0 Asymptomatic menopausal state; Z85.3 Personal history of malignant neoplasm of breast
CPT/HCPCS: 77067

== ENCOUNTER → 2022-09-11 | Outpatient (CLI) | payer MEDICARE | END | disposition home or self-care (01) | LOC: LABPAT 09:57 | PROVIDERS: ATTEND Otolaryngology | DX: Z01.818 Encounter for other preprocedural examination (principal); I45.10 Unspecified right bundle-branch block; R94.31 Abnormal electrocardiogram [ECG] [EKG] | CPT/HCPCS: 93005 ==

== ENCOUNTER → 2022-12-24 | Outpatient (CLI) | payer MEDICARE ==
--- NOTE | 2022-12-24 09:39 | BD ---
EXAMINATION TYPE: Axial Bone Density DATE OF EXAM: 12/24/2022 CLINICAL HISTORY: 67 years old Female. ICD-10 CODE: M81.0 OSTEOPOROSIS Height: 66" Weight: 177.2lbs FRAX RISK QUESTIONS: Alcohol (3 or more units per day): No Family History (Parent hip fracture): No Glucocorticoids (More than 3mos): No (Ex: prednisone, prednisolone, methylprednisolone, dexamethasone, and hydrocortisone). History of Fracture in Adulthood: Yes, rt femur Secondary Osteoporosis: 1. Type 1 Diabetes: No 2. Hyperthyroidism: No 3. Menopause before 45: Yes, 36 4. Malnutrition: No 5. Chronic liver disease: No Rheumatoid Arthritis: No Current Tobacco Use: No RISK FACTORS HISTORY OF: Hip Fracture (Right/Left): No Spine Fracture: No History of Wrist Fracture: No Surgery to Spine/Hip(right/left)/Wrist (right/left): Right femur fracture When: Years ago Family History of Osteoporosis: No Active: Yes Diet low in dairy products/other sources of calcium: No Lost more than 2 inches in height since high school: Yes Frequent falls: No Poor Health: No Hyperparathyroidism: No Adrenal Insufficiency: No MEDICATIONS: Prednisone or other steroids: No Thyroid Medications: No Osteoporosis Medications: Yes Which medication: Part of Fosamax family, R How Long: About one year Additional Medications: Diuretic, Vitamin D, Calcium Additional History: History of breast cancer 2004, mastectomy left breast EXAM MEASUREMENTS: Bone mineral densitometry was performed using the [employer] System. Bone mineral density as measured about the Lumbar spine is: ----- L1-L4(G/cm2): 0.996 T Score Values are as follows: ----- L1: -2.3 ----- L2: -2.0 ----- L3: -1.1 ----- L4: -0.9 ----- L1-L4: -1.5 Z Score Values are as follows: ----- L1: -1.2 ----- L2: -0.9 ----- L3: 0.1 ----- L4: 0.2 ----- L1-L4: -0.4 Bone mineral density has: decreased -9.1% since study of: 12/20/2020 Bone mineral density about the R hip (g/cm2): 0.751 Bone mineral density about the L hip (g/cm2): 0.703 T Score values are as follows: -----R Neck: -2.4 -----L Neck: -2.2 -----R Total: -2.0 -----L Total: -2.4 Z Score values are as follows: -----R Neck: -1.1 -----L Neck: -0.9 -----R Total: -1.0 -----L Total: -1.4 Bone mineral density has: decreased -0.8% since study of: 12/20/2020 FRAX%s: The graph provided illustrates a 21.6% chance for a major osteoporotic fx and a 4.8% chance f or the hips probability for fx in 10 years time. IMPRESSION: Osteopenia (T Score between -2.5 and -1). There is slightly increased risk of fracture and the patient may be considered for treatment. Re-Screen 2-5 years. NOTE: T-SCORE=SD OF THE YOUNG ADULT MEAN.
--- NOTE | 2022-12-25 11:54 | MM ---
Reason for Exam: Hx of breast cancer, mastectomy. Last screening mammogram was performed 12 month(s) ago. Patient History: Menarche at age 13. Patient has no children. Left ovary removed at age 36. Right ovary removed at age 36. Hysterectomy at age 36. Postmenopausal. Breast cancer, age 49. Other cancer. Patient used Estrogen for 13 years. Patient used Hormonal Contraceptives for 2 years. 2004, Reduction on the Right side. 2004, Mastectomy on the Left side. 2004, Implant on the left side. Prior Study Comparison: 11/25/2019 Right Diagnostic Mammogram, [facility]. 12/20/2020 Right Diagnostic Mammogram, [facility]. 12/21/2021 Right MG 3D scr darius unilateral w/cad., [facility]. Tissue Density: Right: The breast tissue is heterogeneously dense. This may lower the sensitivity of mammography. Findings: There is no suspicious group of microcalcifications or new suspicious mass in either breast. Overall Assessment: Benign, BI-RAD 2 Management: Screening Mammogram of both breasts in 1 year. . Patient should continue monthly self-breast exams. A clinical breast exam by your physician is recommended on an annual basis. This exam should not preclude additional follow-up of suspicious palpable abnormalities. Note on Sandra scores and lifetime risk: 1. A Sandra score greater than 3% is considered moderate risk. If this is the case, consider specialist referral to assess eligibility for a risk reducing agent. 2. If overall lifetime risk for the development of breast cancer is 20% or higher, the patient may qualify for future screening with alternating mammogram and breast MRI. Electronically signed and approved by: Javier Esparza M.D. Radiologis
== END | disposition home or self-care (01) ==
LOC: RADMAMWWP 08:12
PROVIDERS: ATTEND Family Medicine
DX: Z12.31 Encounter for screening mammogram for malignant neoplasm of breast (principal); M81.0 Age-related osteoporosis without current pathological fracture; M85.89 Other specified disorders of bone density and structure, multiple sites; Z85.3 Personal history of malignant neoplasm of breast; Z90.12 Acquired absence of left breast and nipple; Z78.0 Asymptomatic menopausal state
CPT/HCPCS: 77067; 77080

== ENCOUNTER → 2023-03-08 | Outpatient (CLI) | payer MEDICARE ==
--- NOTE | 2023-03-08 09:09 | CT ---
EXAMINATION TYPE: CT knee LT wo con DATE OF EXAM: 03/08/2023 COMPARISON: None HISTORY: Fall, left knee pain, nondisplaced longitudinal fracture of the left patella. CT DLP: 474.2 mGycm Automated exposure control for dose reduction was used. FINDINGS: Acute nondisplaced fracture through the patella is confirmed with 2 vertical oriented linear componen ts but also some additional horizontal and oblique components along the medial aspect. Findings are c onsistent with acute minimally displaced comminuted patellar fracture. There is some lateral tilting or subluxation of the patella. There is a large suprapatellar joint eff usion with some mass effect on the distal quadriceps tendon causing slight anterior bulging. Some pun ctate or calcific debris superiorly anteriorly is seen. No popliteal cyst identified. No additional acute fracture or dislocation in the left knee. There is mild to moderate narrowing and spurring medial and lateral tibiofemoral compartments identified. IMPRESSION: As above.
== END | disposition home or self-care (01) ==
LOC: RADCTMAIN 08:31
PROVIDERS: ATTEND Orthopaedic Surgery
DX: M25.462 Effusion, left knee (principal); S82.025A Nondisplaced longitudinal fracture of left patella, initial encounter for closed fracture; W19.XXXA Unspecified fall, initial encounter

== ENCOUNTER → 2023-12-31 | Outpatient (CLI) | payer MEDICARE ==
--- NOTE | 2024-01-01 12:23 | MM ---
Reason for Exam: Screening (asymptomatic). Last screening mammogram was performed 12 month(s) ago. Patient History: Menarche at age 13. Patient has no children. Left ovary removed at age 36. Right ovary removed at age 36. Hysterectomy at age 36. Postmenopausal. Breast cancer, age 49. Other cancer. Patient used Estrogen for 13 years. Patient used Hormonal Contraceptives for 2 years. 2004, Reduction on the Right side. 2004, Mastectomy on the Left side. 2004, Implant on the left side. Prior Study Comparison: 12/20/2020 Right Diagnostic Mammogram, [facility]. 12/21/2021 Right MG 3D scr darius unilateral w/cad., [facility]. 12/24/2022 Right MG 3D scr darius unilateral w/cad., [facility]. Tissue Density: The breasts are heterogeneously dense, which may obscure small masses. Findings: Analyzed By CAD. A few benign round calcifications are redemonstrated. No significant change from prior exams. Overall Assessment: Benign, BI-RAD 2 Management: Screening Mammogram of the right breast in 1 year. Given dense breast tissues, consideration can be given to supplementary screening with breast ultrasound. Results were given to the patient verbally at the time of exam. Patient should continue monthly self-breast exams. A clinical breast exam by your physician is recommended on an annual basis. This exam should not preclude additional follow-up of suspicious palpable abnormalities. [facility], , 01/01/2024 12:20 PM. Electronically signed and approved by: Priyank Becerril M.D. Radiologist
== END | disposition home or self-care (01) ==
LOC: RADMAMWWP 11:05
PROVIDERS: ATTEND Family Medicine
DX: Z12.31 Encounter for screening mammogram for malignant neoplasm of breast
CPT/HCPCS: 77067